=== PATIENT | female | born 1935 | race Caucasian/White ===

== ENCOUNTER 2016-03-15 19:50 | Inpatient (IN) | payer MEDICARE ==
[~2016-03-15] VITALS: Ht 160 cm; Wt 52.0 kg
[~2016-03-15 19:50] MED LIST: VITAMINE
[2016-03-15 20:32] LABS: HEMOGLOBIN 12.6 g/dL (11.7-16.4)
[2016-03-15 20:46] LABS: ASPARTATE AMINO TRANSFERASE 67 U/L (15-37); BLOOD UREA NITROGEN 26 mg/dL (7-18)
[2016-03-15 21:24] LABS: ACETAMINOPHEN < 2 mcg/mL (10-30)
[2016-03-15 21:50] LABS: DAU SCREEN DISCLAIMER
[2016-03-15 22:08] LABS: PATH.CAST-FLAG NOT PRESENT; SPERM-FLAG NOT PRESENT; SRC-FLAG NOT PRESENT; XTAL-FLAG NOT PRESENT; YLC-FLAG NOT PRESENT
[2016-03-16] VITALS (7 sets, daily range): BP systolic 134–173; BP diastolic 64–85
[2016-03-16] MEDS: SODIUM CHLORIDE 0.9% 1,000 ML IV SCH ×2 (03:11→23:30)
[2016-03-16] MEDS: CEFTRIAXONE PMX 1GM/50ML 50 ML IV SCH (03:11)
[2016-03-16] MEDS ORDERED: CEFDINIR 300 MG CAPSULE PO SCH (09:00)
[2016-03-16] MEDS: QUETIAPINE 25MG TABLET PO SCH ×2 (09:44→20:33)
[2016-03-16] MEDS: SERTRALINE 50MG TABLET PO SCH (09:44)
[2016-03-16] MEDS: LISINOPRIL 5 MG TABLET PO SCH ×2 (11:03→11:10)
[2016-03-17 01:15] VITALS: BP 128/72
[2016-03-17] MEDS: CEFTRIAXONE PMX 1GM/50ML 50 ML IV SCH (03:52)
[2016-03-17 06:03] LABS: HEMOGLOBIN 11.7 g/dL (11.7-16.4)
[2016-03-17 06:22] LABS: ASPARTATE AMINO TRANSFERASE 37 U/L (15-37); BLOOD UREA NITROGEN 19 mg/dL (7-18)
[2016-03-17 07:38] VITALS: BP 123/67
[2016-03-17] MEDS: QUETIAPINE 25MG TABLET PO SCH ×2 (09:57→21:30)
[2016-03-17] MEDS: SERTRALINE 50MG TABLET PO SCH (09:58)
[2016-03-17] MEDS: LISINOPRIL 5 MG TABLET PO SCH (09:58)
[2016-03-17 13:00] VITALS: BP 108/54
[2016-03-17] MEDS: SODIUM CHLORIDE 0.9% 1,000 ML IV SCH (17:32)
[2016-03-17 18:25] VITALS: BP_SYST 102; BP_SYST 145; BP_DIAS 65; BP_DIAS 75
[2016-03-18 02:07] VITALS: BP 155/71
[2016-03-18] MEDS: CEFTRIAXONE PMX 1GM/50ML 50 ML IV SCH (03:29)
[2016-03-18 07:32] VITALS: BP 152/72
[2016-03-18] MEDS: QUETIAPINE 25MG TABLET PO SCH ×2 (08:25→21:38)
[2016-03-18] MEDS: LISINOPRIL 5 MG TABLET PO SCH (08:25)
[2016-03-18] MEDS: SERTRALINE 50MG TABLET PO SCH (08:27)
[2016-03-18] MEDS: SODIUM CHLORIDE 0.9% 1,000 ML IV SCH (13:49)
[2016-03-18 14:26] VITALS: BP 115/58
[2016-03-18 18:38] VITALS: BP 141/65
[2016-03-19 00:47] VITALS: BP 155/81
[2016-03-19] MEDS: CEFTRIAXONE PMX 1GM/50ML 50 ML IV SCH (03:46)
[2016-03-19 07:34] VITALS: BP 155/73
[2016-03-19] MEDS: SERTRALINE 50MG TABLET PO SCH (08:03)
[2016-03-19] MEDS: LISINOPRIL 5 MG TABLET PO SCH (08:03)
[2016-03-19] MEDS: QUETIAPINE 25MG TABLET PO SCH ×2 (08:03→21:25)
[2016-03-19] MEDS: SODIUM CHLORIDE 0.9% 1,000 ML IV SCH (08:11)
[2016-03-19 12:48] VITALS: BP 171/79
[2016-03-19 19:00] VITALS: BP 159/78
[2016-03-19] MEDS: HALOPERIDOL 1 MG TABLET PO PRN (21:25)
[2016-03-20 01:46] VITALS: BP 147/61
[2016-03-20] MEDS: CEFTRIAXONE PMX 1GM/50ML 50 ML IV SCH (02:56)
[2016-03-20] MEDS: SODIUM CHLORIDE 0.9% 1,000 ML IV SCH (03:01)
[2016-03-20 07:54] VITALS: BP 138/71
[2016-03-20] MEDS: QUETIAPINE 25MG TABLET PO SCH (08:57)
[2016-03-20] MEDS: SERTRALINE 50MG TABLET PO SCH (08:57)
[2016-03-20] MEDS: LISINOPRIL 5 MG TABLET PO SCH (08:57)
[2016-03-20 13:25] VITALS: BP 120/66
[2016-03-20] MEDS: HALOPERIDOL 1 MG TABLET PO PRN (19:34)
[2016-03-20] MEDS: RISPERIDONE 1 MG TABLET PO SCH (19:35)
[2016-03-20 19:40] VITALS: BP 130/66
[2016-03-21 02:13] VITALS: BP 136/61
[2016-03-21] MEDS: CEFTRIAXONE PMX 1GM/50ML 50 ML IV SCH (04:45)
[2016-03-21] MEDS: SODIUM CHLORIDE 0.9% 1,000 ML IV SCH (04:46)
[2016-03-21] MEDS: ACETAMINOPHEN 325 MG TABLET PO PRN (04:54)
[2016-03-21 08:00] VITALS: BP 123/70
[2016-03-21] MEDS: SERTRALINE 50MG TABLET PO SCH (09:29)
[2016-03-21] MEDS: LISINOPRIL 5 MG TABLET PO SCH (09:29)
[2016-03-21] MEDS ORDERED: FLU VACC QS2016-17 (36MOS+)UP/PF 0.5 ML IM-VACC ONE (12:30)
[2016-03-21 19:50] VITALS: BP 128/62
[2016-03-21] MEDS: RISPERIDONE 1 MG TABLET PO SCH (20:29)
[2016-03-21] MEDS: HALOPERIDOL 1 MG TABLET PO PRN (20:30)
[2016-03-22 01:15] VITALS: BP 102/45
[2016-03-22] MEDS: HALOPERIDOL 1 MG TABLET PO PRN ×2 (05:14→18:47)
[2016-03-22] MEDS: LISINOPRIL 5 MG TABLET PO SCH (07:41)
[2016-03-22] MEDS: SERTRALINE 50MG TABLET PO SCH (07:41)
[2016-03-22 07:48] VITALS: BP 130/72
[2016-03-22 13:30] VITALS: BP 135/75
[2016-03-22] MEDS: ACETAMINOPHEN 325 MG TABLET PO PRN (16:36)
[2016-03-22 18:36] VITALS: BP 152/82
[2016-03-22] MEDS: RISPERIDONE 2 MG TABLET PO SCH (21:10)
[2016-03-22] MEDS: LATANOPROST OPHTH 0.005%, 2.5ML EACHEYE SCH (21:10)
[2016-03-23] MEDS: HALOPERIDOL 1 MG TABLET PO PRN ×2 (02:30→09:53)
[2016-03-23 08:16] VITALS: BP 166/76
[2016-03-23] MEDS: LISINOPRIL 5 MG TABLET PO SCH (09:51)
[2016-03-23 13:24] VITALS: BP 133/69
[2016-03-23 14:00] VITALS: BP 133/69
[2016-03-23 18:34] VITALS: BP 128/69
[2016-03-23] MEDS: LATANOPROST OPHTH 0.005%, 2.5ML EACHEYE SCH (21:00)
[2016-03-23] MEDS: RISPERIDONE 2 MG TABLET PO SCH (21:40)
[2016-03-24 02:08] VITALS: BP 144/77
[2016-03-24 07:18] VITALS: BP 150/79
[2016-03-24] MEDS: LISINOPRIL 5 MG TABLET PO SCH (09:25)
[2016-03-24 14:25] VITALS: BP 113/66
[2016-03-24 21:24] VITALS: BP 159/76
[2016-03-24] MEDS: RISPERIDONE 2 MG TABLET PO SCH (21:53)
[2016-03-24] MEDS: LATANOPROST OPHTH 0.005%, 2.5ML EACHEYE SCH (21:53)
[2016-03-25 01:36] VITALS: BP 146/69
[2016-03-25 07:37] VITALS: BP 119/64
[2016-03-25] MEDS: LISINOPRIL 5 MG TABLET PO SCH (08:41)
[2016-03-25 14:20] VITALS: BP 96/61
[2016-03-25 19:01] VITALS: BP 93/54
[2016-03-25] MEDS: RISPERIDONE 2 MG TABLET PO SCH (20:15)
[2016-03-25] MEDS: LATANOPROST OPHTH 0.005%, 2.5ML EACHEYE SCH (20:16)
[2016-03-25 20:19] VITALS: BP 95/59
[2016-03-26 01:31] VITALS: BP 144/78
[2016-03-26 06:42] VITALS: BP 124/75
[2016-03-26 07:35] VITALS: BP 109/65
[2016-03-26] MEDS: LISINOPRIL 5 MG TABLET PO SCH (07:51)
[2016-03-26 13:05] VITALS: BP 111/73
[2016-03-26 18:50] VITALS: BP 109/62
[2016-03-26] MEDS: LATANOPROST OPHTH 0.005%, 2.5ML EACHEYE SCH (20:53)
[2016-03-26] MEDS: RISPERIDONE 2 MG TABLET PO SCH (20:54)
[2016-03-27] VITALS (10 sets, daily range): BP systolic 85–173; BP diastolic 51–81
[2016-03-27] MEDS: HALOPERIDOL 1 MG TABLET PO PRN (02:48)
[2016-03-27] MEDS: LISINOPRIL 5 MG TABLET PO SCH (08:09)
[2016-03-27 12:59] LABS: BLOOD UREA NITROGEN 25 mg/dL (7-18)
[2016-03-27 13:04] LABS: HEMOGLOBIN 12.5 g/dL (11.7-16.4)
[2016-03-27 13:32] LABS: PATH.CAST-FLAG NOT PRESENT; SPERM-FLAG NOT PRESENT; SRC-FLAG NOT PRESENT; XTAL-FLAG NOT PRESENT; YLC-FLAG NOT PRESENT
[2016-03-27] MEDS: RISPERIDONE 2 MG TABLET PO SCH (21:41)
[2016-03-27] MEDS: LATANOPROST OPHTH 0.005%, 2.5ML EACHEYE SCH (21:42)
[2016-03-28 01:08] LABS: IS PT STATUS REG ER OR PRE ER? NO
[2016-03-28 01:50] VITALS: BP 124/73
[2016-03-28 06:26] LABS: IS PT STATUS REG ER OR PRE ER? NO
[2016-03-28 08:00] VITALS: BP_SYST 121; BP_SYST 128; BP_SYST 147; BP_DIAS 71; BP_DIAS 82
[2016-03-28 12:52] LABS: IS PT STATUS REG ER OR PRE ER? NO
[2016-03-28 14:51] VITALS: BP_SYST 112; BP_SYST 99; BP_DIAS 65; BP_DIAS 66; BP_DIAS 70
[2016-03-28] MEDS: HALOPERIDOL 1 MG TABLET PO PRN (18:06)
[2016-03-28 18:36] VITALS: BP_SYST 108; BP_SYST 123; BP_SYST 136; BP_DIAS 65; BP_DIAS 68; BP_DIAS 74
[2016-03-28] MEDS: LATANOPROST OPHTH 0.005%, 2.5ML EACHEYE SCH (21:54)
[2016-03-28] MEDS: RISPERIDONE 2 MG TABLET PO SCH (21:54)
[2016-03-29] VITALS (8 sets, daily range): BP systolic 93–170; BP diastolic 58–93
[2016-03-29] MEDS: HALOPERIDOL 1 MG TABLET PO PRN (00:56)
[2016-03-29] MEDS ORDERED: SODIUM CHLORIDE 0.9% 1,000 ML IV ONE (09:00)
[2016-03-29] MEDS: LATANOPROST OPHTH 0.005%, 2.5ML EACHEYE SCH ×2 (20:59→21:00)
[2016-03-29] MEDS: RISPERIDONE 2 MG TABLET PO SCH (20:59)
[2016-03-30 01:56] VITALS: BP_SYST 128; BP_SYST 154; BP_SYST 159; BP_DIAS 78; BP_DIAS 80; BP_DIAS 81
[2016-03-30] MEDS: HALOPERIDOL 1 MG TABLET PO PRN (01:56)
[2016-03-30 07:05] VITALS: BP_SYST 100; BP_SYST 101; BP_SYST 99; BP_DIAS 59; BP_DIAS 62; BP_DIAS 66
[2016-03-30] MEDS: FLUDROCORTISONE 0.1 MG TABLET PO SCH (09:18)
[2016-03-30 13:34] VITALS: BP_SYST 120; BP_SYST 133; BP_SYST 154; BP_DIAS 71; BP_DIAS 72
[2016-03-30] MEDS: OLANZAPINE 5 MG TABLET PO PRN (18:01)
[2016-03-30 19:30] VITALS: BP_SYST 137; BP_SYST 147; BP_SYST 165; BP_DIAS 71; BP_DIAS 76; BP_DIAS 78
[2016-03-30] MEDS: OLANZAPINE 5 MG TABLET PO SCH (22:59)
[2016-03-30] MEDS: LATANOPROST OPHTH 0.005%, 2.5ML EACHEYE SCH (22:59)
[2016-03-30] MEDS: ACETAMINOPHEN 325 MG TABLET PO PRN (23:03)
[2016-03-31 06:30] VITALS: BP 154/74
[2016-03-31 08:27] VITALS: BP_SYST 129; BP_SYST 149; BP_SYST 151; BP_DIAS 70; BP_DIAS 76; BP_DIAS 82
[2016-03-31] MEDS: ACETAMINOPHEN 325 MG TABLET PO PRN (11:50)
[2016-03-31] MEDS: FLUDROCORTISONE 0.1 MG TABLET PO SCH (11:50)
[2016-03-31 12:41] VITALS: BP 130/76
[2016-03-31] MEDS: OLANZAPINE 5 MG TABLET PO SCH (19:49)
[2016-03-31] MEDS: LATANOPROST OPHTH 0.005%, 2.5ML EACHEYE SCH (19:49)
[2016-03-31 20:02] VITALS: BP_SYST 123; BP_SYST 156; BP_DIAS 73; BP_DIAS 84
[2016-04-01 02:39] VITALS: BP 151/80
[2016-04-01] MEDS: OLANZAPINE 5 MG TABLET PO PRN (03:04)
[2016-04-01 07:35] VITALS: BP_SYST 129; BP_SYST 137; BP_SYST 158; BP_DIAS 75; BP_DIAS 79; BP_DIAS 83
[2016-04-01] MEDS: FLUDROCORTISONE 0.1 MG TABLET PO SCH (08:53)
[2016-04-01 13:59] VITALS: BP_SYST 101; BP_SYST 102; BP_SYST 117; BP_DIAS 64; BP_DIAS 71; BP_DIAS 78
[2016-04-01 19:13] VITALS: BP_SYST 113; BP_SYST 123; BP_SYST 130; BP_DIAS 71; BP_DIAS 73; BP_DIAS 77
[2016-04-01] MEDS: LATANOPROST OPHTH 0.005%, 2.5ML EACHEYE SCH (21:31)
[2016-04-01] MEDS: OLANZAPINE 5 MG TABLET PO SCH (21:34)
[2016-04-02 01:40] VITALS: BP 119/69
[2016-04-02 01:41] VITALS: BP 120/75
[2016-04-02 01:42] VITALS: BP 117/75
[2016-04-02] MEDS: OLANZAPINE 5 MG TABLET PO PRN (02:58)
[2016-04-02 05:57] LABS: HEMOGLOBIN 13.2 g/dL (11.7-16.4)
[2016-04-02 06:15] LABS: ASPARTATE AMINO TRANSFERASE 23 U/L (15-37); BLOOD UREA NITROGEN 32 mg/dL (7-18)
[2016-04-02 08:27] VITALS: BP 157/72
[2016-04-02] MEDS: FLUDROCORTISONE 0.1 MG TABLET PO SCH (09:08)
[2016-04-02 13:39] VITALS: BP 145/80
[2016-04-02 19:37] VITALS: BP 129/88
[2016-04-02] MEDS: LATANOPROST OPHTH 0.005%, 2.5ML EACHEYE SCH (20:11)
[2016-04-02] MEDS: OLANZAPINE 5 MG TABLET PO SCH (20:12)
[2016-04-03 02:22] VITALS: BP 128/69
[2016-04-03 02:26] VITALS: BP 133/67
[2016-04-03 02:28] VITALS: BP 136/73
[2016-04-03 07:59] VITALS: BP 159/82
[2016-04-03] MEDS: FLUDROCORTISONE 0.1 MG TABLET PO SCH (09:08)
[2016-04-03 14:08] VITALS: BP 151/80
[2016-04-03] MEDS: ENOXAPARIN 40 MG/0.4 ML SQ SCH (16:11)
[2016-04-03 19:06] VITALS: BP 128/67
[2016-04-03] MEDS: LATANOPROST OPHTH 0.005%, 2.5ML EACHEYE SCH (20:43)
[2016-04-03] MEDS: OLANZAPINE 5 MG TABLET PO SCH (20:43)
[2016-04-04 01:42] VITALS: BP 142/79
[2016-04-04] MEDS: ACETAMINOPHEN 325 MG TABLET PO PRN (04:55)
[2016-04-04 06:30] VITALS: BP 144/62
[2016-04-04] MEDS: FLUDROCORTISONE 0.1 MG TABLET PO SCH (08:21)
[2016-04-04 14:11] VITALS: BP 139/70
[2016-04-04] MEDS: ENOXAPARIN 40 MG/0.4 ML SQ SCH ×2 (16:00→17:32)
[2016-04-04] MEDS: OLANZAPINE 5 MG TABLET PO PRN (17:24)
[2016-04-04 19:49] VITALS: BP_SYST 112; BP_SYST 114; BP_SYST 116; BP_DIAS 62; BP_DIAS 74; BP_DIAS 76
[2016-04-04] MEDS: LATANOPROST OPHTH 0.005%, 2.5ML EACHEYE SCH (20:07)
[2016-04-04] MEDS: OLANZAPINE 5 MG TABLET PO SCH (21:06)
[2016-04-05 01:19] VITALS: BP_SYST 115; BP_SYST 123; BP_SYST 135; BP_DIAS 72; BP_DIAS 76; BP_DIAS 83
[2016-04-05 08:17] VITALS: BP_SYST 118; BP_SYST 130; BP_SYST 151; BP_DIAS 75; BP_DIAS 79; BP_DIAS 80
[2016-04-05] MEDS: OLANZAPINE 5 MG TABLET PO SCH (09:07)
[2016-04-05] MEDS: FLUDROCORTISONE 0.1 MG TABLET PO SCH (09:08)
[2016-04-05 13:38] VITALS: BP_SYST 133; BP_SYST 135; BP_SYST 139; BP_DIAS 78; BP_DIAS 82
[2016-04-05] MEDS: ENOXAPARIN 40 MG/0.4 ML SQ SCH (17:00)
[2016-04-05 19:16] VITALS: BP_SYST 124; BP_SYST 129; BP_SYST 144; BP_DIAS 67; BP_DIAS 82; BP_DIAS 88
[2016-04-05] MEDS: ACETAMINOPHEN 325 MG TABLET PO PRN (19:41)
[2016-04-05] MEDS: DIVALPROEX 500 MG TAB.ER.24H PO SCH (20:43)
[2016-04-05] MEDS: LATANOPROST OPHTH 0.005%, 2.5ML EACHEYE SCH (20:43)
[2016-04-06 02:00] VITALS: BP_SYST 139; BP_SYST 140; BP_SYST 142; BP_DIAS 78; BP_DIAS 83; BP_DIAS 84
[2016-04-06 07:14] VITALS: BP 174/85
[2016-04-06 07:36] VITALS: BP_SYST 129; BP_SYST 147; BP_DIAS 100; BP_DIAS 98
[2016-04-06] MEDS: FLUDROCORTISONE 0.1 MG TABLET PO SCH (08:21)
[2016-04-06 13:29] VITALS: BP_SYST 127; BP_SYST 136; BP_SYST 153; BP_DIAS 69; BP_DIAS 79; BP_DIAS 87
[2016-04-06] MEDS: ACETAMINOPHEN 325 MG TABLET PO PRN (17:13)
[2016-04-06] MEDS: ENOXAPARIN 40 MG/0.4 ML SQ SCH (17:14)
[2016-04-06 18:39] VITALS: BP 122/64
[2016-04-06] MEDS ORDERED: ACETAMINOPHEN 325 MG TABLET ONE (19:09)
[2016-04-06] MEDS ORDERED: ACETAMINOPHEN 650 MG/20.3 ML UDC ONE (19:09)
[2016-04-06] MEDS ORDERED: OXYcodone 5 MG/5 ML ORAL.SOL UDC ONE (19:09)
[2016-04-06] MEDS ORDERED: FENTANYL PF 100 MCG/2ML ONE (19:09)
[2016-04-06] MEDS ORDERED: HYDROmorphone 2 MG/ML, 1ML ONE (19:33)
[2016-04-06] MEDS: DIVALPROEX 500 MG TAB.ER.24H PO SCH (21:20)
[2016-04-06] MEDS: LATANOPROST OPHTH 0.005%, 2.5ML EACHEYE SCH (21:20)
[2016-04-06] MEDS: OLANZAPINE 5 MG TABLET PO SCH (21:20)
[2016-04-07] VITALS (8 sets, daily range): BP systolic 120–181; BP diastolic 56–97
[2016-04-07] MEDS: OLANZAPINE 5 MG TABLET PO SCH (12:56)
[2016-04-07] MEDS: FLUDROCORTISONE 0.1 MG TABLET PO SCH (12:56)
[2016-04-07] MEDS: ENOXAPARIN 40 MG/0.4 ML SQ SCH (17:00)
[2016-04-07] MEDS: DIVALPROEX 500 MG TAB.ER.24H PO SCH (19:15)
[2016-04-07] MEDS: ACETAMINOPHEN 325 MG TABLET PO PRN (19:15)
[2016-04-07] MEDS: LATANOPROST OPHTH 0.005%, 2.5ML EACHEYE SCH (19:16)
[2016-04-07] MEDS: OLANZAPINE 5 MG TABLET PO PRN (23:24)
[2016-04-08 01:49] VITALS: BP 131/68
[2016-04-08 07:23] VITALS: BP 138/96
[2016-04-08] MEDS: FLUDROCORTISONE 0.1 MG TABLET PO SCH (08:04)
[2016-04-08] MEDS: OLANZAPINE 5 MG TABLET PO PRN (08:05)
[2016-04-08] MEDS ORDERED: LORazepam 2 MG/ML, 1ML ONE (08:31)
[2016-04-08] MEDS: LORazepam 2 MG/ML, 1ML IVPush PRN ×2 (08:35→22:40)
[2016-04-08 16:35] VITALS: BP 120/51
[2016-04-08] MEDS: ENOXAPARIN 40 MG/0.4 ML SQ SCH (17:00)
[2016-04-08 19:02] VITALS: BP 128/76
[2016-04-08] MEDS: DIVALPROEX 500 MG TAB.ER.24H PO SCH (21:06)
[2016-04-08] MEDS: LATANOPROST OPHTH 0.005%, 2.5ML EACHEYE SCH (21:07)
[2016-04-08] MEDS: OLANZAPINE 5 MG TABLET PO SCH (22:40)
[2016-04-09] VITALS (8 sets, daily range): BP systolic 105–138; BP diastolic 58–83
[2016-04-09] MEDS: FLUDROCORTISONE 0.1 MG TABLET PO SCH (07:46)
[2016-04-09] MEDS: ACETAMINOPHEN 325 MG TABLET PO PRN ×2 (07:46→20:23)
[2016-04-09] MEDS: OLANZAPINE 5 MG TABLET PO PRN (07:48)
[2016-04-09] MEDS: ENOXAPARIN 40 MG/0.4 ML SQ SCH (17:00)
[2016-04-09] MEDS: DIVALPROEX 500 MG TAB.ER.24H PO SCH (20:23)
[2016-04-09] MEDS: OLANZAPINE 5 MG TABLET PO SCH (20:23)
[2016-04-09] MEDS: LATANOPROST OPHTH 0.005%, 2.5ML EACHEYE SCH (20:23)
[2016-04-09] MEDS: OLANZAPINE 2.5 MG TABLET PO PRN (20:23)
[2016-04-10 04:19] VITALS: BP 130/71
[2016-04-10 06:54] VITALS: BP_SYST 139; BP_SYST 141; BP_SYST 144; BP_DIAS 76; BP_DIAS 92
[2016-04-10] MEDS: FLUDROCORTISONE 0.1 MG TABLET PO SCH (09:25)
[2016-04-10] MEDS: OLANZAPINE 2.5 MG TABLET PO PRN (13:20)
[2016-04-10] MEDS: OLANZAPINE 5 MG TABLET PO SCH ×2 (13:20→21:18)
[2016-04-10 13:59] VITALS: BP 137/82
[2016-04-10] MEDS: ENOXAPARIN 40 MG/0.4 ML SQ SCH (17:00)
[2016-04-10 19:43] VITALS: BP 159/81
[2016-04-10] MEDS: DIVALPROEX 250 MG TAB.ER.24H PO SCH (21:17)
[2016-04-10] MEDS: LATANOPROST OPHTH 0.005%, 2.5ML EACHEYE SCH (21:18)
[2016-04-10] MEDS: ACETAMINOPHEN 325 MG TABLET PO PRN (22:51)
[2016-04-11 01:36] VITALS: BP 154/79
[2016-04-11 08:20] VITALS: BP 132/78
[2016-04-11] MEDS: FLUDROCORTISONE 0.1 MG TABLET PO SCH (08:24)
[2016-04-11] MEDS: ACETAMINOPHEN 325 MG TABLET PO PRN ×2 (08:24→16:47)
[2016-04-11] MEDS: OLANZAPINE 2.5 MG TABLET PO PRN (12:37)
[2016-04-11 13:50] VITALS: BP 130/84
[2016-04-11] MEDS: ENOXAPARIN 40 MG/0.4 ML SQ SCH (16:12)
[2016-04-11 19:51] VITALS: BP 134/80
[2016-04-11] MEDS: OLANZAPINE 5 MG TABLET PO SCH (22:31)
[2016-04-11] MEDS: LATANOPROST OPHTH 0.005%, 2.5ML EACHEYE SCH (22:31)
[2016-04-11] MEDS: DIVALPROEX 250 MG TAB.ER.24H PO SCH (22:31)
[2016-04-12] MEDS: OLANZAPINE 2.5 MG TABLET PO PRN ×2 (05:28→16:06)
[2016-04-12 07:48] VITALS: BP 123/76
[2016-04-12] MEDS: FLUDROCORTISONE 0.1 MG TABLET PO SCH (08:29)
[2016-04-12] MEDS: ENOXAPARIN 40 MG/0.4 ML SQ SCH (17:00)
[2016-04-12 19:29] VITALS: BP 114/68
[2016-04-12] MEDS: LATANOPROST OPHTH 0.005%, 2.5ML EACHEYE SCH (19:59)
[2016-04-12] MEDS: DIVALPROEX 250 MG TAB.ER.24H PO SCH (20:00)
[2016-04-12] MEDS: OLANZAPINE 5 MG TABLET PO SCH (20:00)
[2016-04-13] MEDS: OLANZAPINE 2.5 MG TABLET PO PRN (01:27)
[2016-04-13] MEDS ORDERED: LORazepam 1MG TABLET PO ONE (06:00)
[2016-04-13 07:51] VITALS: BP 110/66
[2016-04-13 08:42] VITALS: BP 123/80
[2016-04-13] MEDS: FLUDROCORTISONE 0.1 MG TABLET PO SCH (09:00)
[2016-04-13] MEDS ORDERED: SODIUM CHLORIDE 0.9%, 500ML IVBOLUS ONE (09:00)
[2016-04-13] MEDS ORDERED: FLUMAZENIL 0.1 MG/1 ML, 5ML IVPush ONE (09:00)
[2016-04-13 10:06] LABS: HEMOGLOBIN 12.7 g/dL (11.7-16.4)
[2016-04-13 11:40] LABS: ASPARTATE AMINO TRANSFERASE 22 U/L (15-37); BLOOD UREA NITROGEN 26 mg/dL (7-18)
[2016-04-13 11:41] LABS: IS PT STATUS REG ER OR PRE ER? NO
[2016-04-13 12:55] VITALS: BP 129/78
[2016-04-13] MEDS: ACETAMINOPHEN 325 MG TABLET PO PRN (16:10)
[2016-04-13 19:00] LABS: IS PT STATUS REG ER OR PRE ER? NO
[2016-04-13 20:00] VITALS: BP 118/63
[2016-04-13] MEDS: OLANZAPINE 5 MG TABLET PO SCH (21:00)
[2016-04-13] MEDS: DIVALPROEX 250 MG TAB.ER.24H PO SCH (21:00)
[2016-04-13] MEDS: LATANOPROST OPHTH 0.005%, 2.5ML EACHEYE SCH (21:00)
[2016-04-13] MEDS: ENOXAPARIN 40 MG/0.4 ML SQ SCH (21:00)
[2016-04-14 02:00] VITALS: BP 128/73
[2016-04-14] MEDS: OLANZAPINE 2.5 MG TABLET PO PRN ×2 (05:12→14:10)
[2016-04-14 05:20] LABS: HEMOGLOBIN 13.1 g/dL (11.7-16.4)
[2016-04-14 05:28] LABS: BLOOD UREA NITROGEN 34 mg/dL (7-18)
[2016-04-14 06:33] VITALS: BP 113/66
[2016-04-14] MEDS: FLUDROCORTISONE 0.1 MG TABLET PO SCH (09:10)
[2016-04-14 14:49] VITALS: BP 133/71
[2016-04-14] MEDS ORDERED: DIVALPROEX 250 MG TAB.ER.24H PO STA (15:09)
[2016-04-14 18:57] VITALS: BP 150/73
[2016-04-14] MEDS: ENOXAPARIN 40 MG/0.4 ML SQ SCH (20:12)
[2016-04-14] MEDS: DIVALPROEX 250 MG TAB.ER.24H PO SCH (20:17)
[2016-04-14] MEDS: OLANZAPINE 5 MG TABLET PO SCH (20:17)
[2016-04-14] MEDS: LATANOPROST OPHTH 0.005%, 2.5ML EACHEYE SCH (20:18)
[2016-04-15 01:24] VITALS: BP 143/79
[2016-04-15] MEDS: FLUDROCORTISONE 0.1 MG TABLET PO SCH (07:30)
[2016-04-15] MEDS: OLANZAPINE 2.5 MG TABLET PO PRN ×2 (07:30→13:11)
[2016-04-15 07:57] VITALS: BP 145/79
[2016-04-15 15:12] VITALS: BP 129/68
[2016-04-15 18:44] VITALS: BP 153/84
[2016-04-15] MEDS: OLANZAPINE 5 MG TABLET PO SCH (20:41)
[2016-04-15] MEDS: DIVALPROEX 250 MG TAB.ER.24H PO SCH (20:41)
[2016-04-15] MEDS: LATANOPROST OPHTH 0.005%, 2.5ML EACHEYE SCH (20:41)
[2016-04-15] MEDS: ENOXAPARIN 40 MG/0.4 ML SQ SCH (20:44)
[2016-04-16 04:06] VITALS: BP 160/81
[2016-04-16] MEDS: OLANZAPINE 2.5 MG TABLET PO PRN ×4 (05:52→17:48)
[2016-04-16 07:45] VITALS: BP 144/84
[2016-04-16] MEDS: FLUDROCORTISONE 0.1 MG TABLET PO SCH (09:44)
[2016-04-16 13:44] VITALS: BP 166/77
[2016-04-16 18:06] VITALS: BP 147/117
[2016-04-16] MEDS: DIVALPROEX 250 MG TAB.ER.24H PO SCH (20:52)
[2016-04-16] MEDS: OLANZAPINE 5 MG TABLET PO SCH (20:54)
[2016-04-16] MEDS: LATANOPROST OPHTH 0.005%, 2.5ML EACHEYE SCH (20:54)
[2016-04-16] MEDS: ENOXAPARIN 40 MG/0.4 ML SQ SCH (20:55)
[2016-04-17] MEDS ORDERED: RISPERIDONE 0.5 MG TABLET PO ONE (03:30)
[2016-04-17 07:40] VITALS: BP 153/88
[2016-04-17] MEDS: ACETAMINOPHEN 325 MG TABLET PO PRN (08:05)
[2016-04-17] MEDS: FLUDROCORTISONE 0.1 MG TABLET PO SCH (09:48)
[2016-04-17] MEDS: OLANZAPINE 2.5 MG TABLET PO PRN ×2 (17:37→20:35)
[2016-04-17 20:10] VITALS: BP 166/81
[2016-04-17] MEDS: ENOXAPARIN 40 MG/0.4 ML SQ SCH (20:19)
[2016-04-17] MEDS: LATANOPROST OPHTH 0.005%, 2.5ML EACHEYE SCH (20:36)
[2016-04-17] MEDS: DIVALPROEX 250 MG TAB.ER.24H PO SCH (20:36)
[2016-04-17] MEDS: OLANZAPINE 5 MG TABLET PO SCH (21:03)
[2016-04-18 08:00] VITALS: BP 120/82
[2016-04-18] MEDS: FLUDROCORTISONE 0.1 MG TABLET PO SCH (08:57)
[2016-04-18 19:33] VITALS: BP 139/75
[2016-04-18] MEDS: LATANOPROST OPHTH 0.005%, 2.5ML EACHEYE SCH (20:04)
[2016-04-18] MEDS: DIVALPROEX 250 MG TAB.ER.24H PO SCH (20:05)
[2016-04-18] MEDS: OLANZAPINE 5 MG TABLET PO SCH (20:06)
[2016-04-18] MEDS: ENOXAPARIN 40 MG/0.4 ML SQ SCH (21:00)
[2016-04-19 03:07] VITALS: BP 151/88
[2016-04-19] MEDS: ACETAMINOPHEN 325 MG TABLET PO PRN (09:05)
[2016-04-19 09:15] VITALS: BP 142/87
[2016-04-19 15:00] VITALS: BP 147/81
[2016-04-19 19:54] VITALS: BP 153/80
[2016-04-19] MEDS: OLANZAPINE 5 MG TABLET PO SCH (20:50)
[2016-04-19] MEDS: LATANOPROST OPHTH 0.005%, 2.5ML EACHEYE SCH (20:51)
[2016-04-19] MEDS: DIVALPROEX 250 MG TAB.ER.24H PO SCH (20:55)
[2016-04-19] MEDS: ENOXAPARIN 40 MG/0.4 ML SQ SCH (20:56)
[2016-04-20] VITALS (11 sets, daily range): BP systolic 118–169; BP diastolic 65–92
[2016-04-20] MEDS: ACETAMINOPHEN 325 MG TABLET PO PRN (03:52)
[2016-04-20] MEDS: OLANZAPINE 2.5 MG TABLET PO PRN ×2 (03:52→23:10)
[2016-04-20] MEDS: OLANZAPINE 5 MG TABLET PO SCH (20:27)
[2016-04-20] MEDS: LATANOPROST OPHTH 0.005%, 2.5ML EACHEYE SCH (20:27)
[2016-04-20] MEDS: DIVALPROEX 250 MG TAB.ER.24H PO SCH (20:30)
[2016-04-20] MEDS: ENOXAPARIN 40 MG/0.4 ML SQ SCH (21:00)
[2016-04-21 05:49] VITALS: BP 153/90
[2016-04-21] MEDS: OLANZAPINE 2.5 MG TABLET PO PRN ×3 (08:00→15:43)
[2016-04-21 11:28] VITALS: BP 115/81
[2016-04-21 13:00] VITALS: BP 125/80
[2016-04-21 19:17] VITALS: BP 119/68
[2016-04-21] MEDS: DIVALPROEX 250 MG TAB.ER.24H PO SCH (20:17)
[2016-04-21] MEDS: LATANOPROST OPHTH 0.005%, 2.5ML EACHEYE SCH (20:17)
[2016-04-21] MEDS: OLANZAPINE 5 MG TABLET PO SCH (20:18)
[2016-04-21] MEDS: ENOXAPARIN 40 MG/0.4 ML SQ SCH (21:00)
[2016-04-22 07:52] VITALS: BP 144/83
[2016-04-22] MEDS ORDERED: OLANZAPINE 5 MG TABLET PO ONE (14:00)
[2016-04-22 19:43] VITALS: BP 159/80
[2016-04-22] MEDS: DIVALPROEX 250 MG TAB.ER.24H PO SCH (21:00)
[2016-04-22] MEDS: ENOXAPARIN 40 MG/0.4 ML SQ SCH (21:00)
[2016-04-22] MEDS: LATANOPROST OPHTH 0.005%, 2.5ML EACHEYE SCH (21:25)
[2016-04-22] MEDS: OLANZAPINE 5 MG TABLET PO SCH (21:26)
[2016-04-23 07:25] VITALS: BP 130/86
[2016-04-23] MEDS: OLANZAPINE 5 MG TABLET PO SCH ×2 (08:18→20:40)
[2016-04-23 20:36] VITALS: BP 125/80
[2016-04-23] MEDS: LATANOPROST OPHTH 0.005%, 2.5ML EACHEYE SCH (20:39)
[2016-04-23] MEDS: ENOXAPARIN 40 MG/0.4 ML SQ SCH (20:41)
[2016-04-23] MEDS: DIVALPROEX 250 MG TAB.ER.24H PO SCH (20:41)
[2016-04-24] MEDS: OLANZAPINE 2.5 MG TABLET PO PRN (02:46)
[2016-04-24 08:00] VITALS: BP 133/60
[2016-04-24] MEDS: OLANZAPINE 5 MG TABLET PO SCH ×2 (11:10→20:58)
[2016-04-24 19:35] VITALS: BP 125/81
[2016-04-24] MEDS: DIVALPROEX 250 MG TAB.ER.24H PO SCH (20:58)
[2016-04-24] MEDS: LATANOPROST OPHTH 0.005%, 2.5ML EACHEYE SCH (20:58)
[2016-04-24] MEDS: ENOXAPARIN 40 MG/0.4 ML SQ SCH (21:00)
[2016-04-25 07:48] VITALS: BP 125/71
[2016-04-25] MEDS: OLANZAPINE 5 MG TABLET PO SCH ×2 (10:06→21:24)
[2016-04-25 19:36] VITALS: BP 119/73
[2016-04-25] MEDS: ENOXAPARIN 40 MG/0.4 ML SQ SCH (21:00)
[2016-04-25] MEDS: LATANOPROST OPHTH 0.005%, 2.5ML EACHEYE SCH (21:24)
[2016-04-25] MEDS: DIVALPROEX 250 MG TAB.ER.24H PO SCH (21:24)
[2016-04-25 21:37] VITALS: BP 149/79
[2016-04-26 08:19] VITALS: BP 115/70
[2016-04-26] MEDS: OLANZAPINE 5 MG TABLET PO SCH ×2 (08:41→20:55)
[2016-04-26 18:15] LABS: HEMOGLOBIN 13.7 g/dL (11.7-16.4)
[2016-04-26 18:26] LABS: BLOOD UREA NITROGEN 38 mg/dL (7-18)
[2016-04-26 19:25] VITALS: BP 136/71
[2016-04-26] MEDS: DIVALPROEX 250 MG TAB.ER.24H PO SCH (20:55)
[2016-04-26] MEDS: ENOXAPARIN 40 MG/0.4 ML SQ SCH (21:00)
[2016-04-26] MEDS: LATANOPROST OPHTH 0.005%, 2.5ML EACHEYE SCH (21:02)
[2016-04-27 07:47] VITALS: BP 119/75
[2016-04-27] MEDS: OLANZAPINE 5 MG TABLET PO SCH ×2 (08:38→22:06)
[2016-04-27 19:33] VITALS: BP 106/65
[2016-04-27] MEDS: DIVALPROEX 250 MG TAB.ER.24H PO SCH (22:07)
[2016-04-27] MEDS: LATANOPROST OPHTH 0.005%, 2.5ML EACHEYE SCH (22:09)
[2016-04-27] MEDS: ENOXAPARIN 40 MG/0.4 ML SQ SCH (22:12)
[2016-04-28] MEDS: OLANZAPINE 2.5 MG TABLET PO PRN (02:54)
[2016-04-28 07:54] VITALS: BP 139/77
[2016-04-28] MEDS: OLANZAPINE 5 MG TABLET PO SCH ×2 (08:12→23:11)
[2016-04-28 19:43] VITALS: BP 119/75
[2016-04-28] MEDS: ENOXAPARIN 40 MG/0.4 ML SQ SCH (21:00)
[2016-04-28] MEDS: DIVALPROEX 250 MG TAB.ER.24H PO SCH (23:11)
[2016-04-28] MEDS: LATANOPROST OPHTH 0.005%, 2.5ML EACHEYE SCH (23:14)
[2016-04-28] MEDS: DRONABINOL 2.5 MG CAPSULE PO SCH (23:17)
[2016-04-29 05:15] VITALS: BP 133/69
[2016-04-29 06:06] LABS: HEMOGLOBIN 13.8 g/dL (11.7-16.4)
[2016-04-29 06:46] LABS: ASPARTATE AMINO TRANSFERASE 34 U/L (15-37); BLOOD UREA NITROGEN 20 mg/dL (7-18)
[2016-04-29 07:57] VITALS: BP 126/63
[2016-04-29] MEDS: DRONABINOL 2.5 MG CAPSULE PO SCH ×3 (10:30→21:45)
[2016-04-29] MEDS: OLANZAPINE 5 MG TABLET PO SCH ×2 (10:31→21:00)
[2016-04-29 19:58] VITALS: BP 113/65
[2016-04-29] MEDS: ENOXAPARIN 40 MG/0.4 ML SQ SCH (21:00)
[2016-04-29] MEDS: DIVALPROEX 250 MG TAB.ER.24H PO SCH (21:38)
[2016-04-29] MEDS: LATANOPROST OPHTH 0.005%, 2.5ML EACHEYE SCH (21:38)
[2016-04-30] MEDS: OLANZAPINE 2.5 MG TABLET PO PRN (06:23)
[2016-04-30 07:40] VITALS: BP 121/72
[2016-04-30] MEDS: DRONABINOL 2.5 MG CAPSULE PO SCH ×2 (08:35→21:33)
[2016-04-30] MEDS: OLANZAPINE 5 MG TABLET PO SCH ×2 (08:35→21:35)
[2016-04-30 17:09] VITALS: BP 123/70
[2016-04-30] MEDS: ENOXAPARIN 40 MG/0.4 ML SQ SCH (21:00)
[2016-04-30] MEDS: DIVALPROEX 250 MG TAB.ER.24H PO SCH (21:14)
[2016-04-30] MEDS: LATANOPROST OPHTH 0.005%, 2.5ML EACHEYE SCH (21:17)
[2016-05-01] MEDS: OLANZAPINE 2.5 MG TABLET PO PRN (01:04)
[2016-05-01 07:45] VITALS: BP 109/68
[2016-05-01] MEDS: DRONABINOL 2.5 MG CAPSULE PO SCH ×2 (08:00→21:05)
[2016-05-01] MEDS: OLANZAPINE 5 MG TABLET PO SCH ×2 (08:00→21:06)
[2016-05-01 19:23] VITALS: BP 107/64
[2016-05-01] MEDS: ENOXAPARIN 40 MG/0.4 ML SQ SCH (21:00)
[2016-05-01] MEDS: DIVALPROEX 250 MG TAB.ER.24H PO SCH (21:06)
[2016-05-01] MEDS: LATANOPROST OPHTH 0.005%, 2.5ML EACHEYE SCH (21:07)
[2016-05-02 07:59] VITALS: BP 111/71
[2016-05-02] MEDS: DRONABINOL 2.5 MG CAPSULE PO SCH ×2 (08:20→21:13)
[2016-05-02] MEDS: OLANZAPINE 5 MG TABLET PO SCH ×2 (08:20→21:14)
[2016-05-02 19:10] VITALS: BP 111/71
[2016-05-02] MEDS: LATANOPROST OPHTH 0.005%, 2.5ML EACHEYE SCH (21:12)
[2016-05-02] MEDS: DIVALPROEX 250 MG TAB.ER.24H PO SCH (21:13)
[2016-05-02] MEDS: ENOXAPARIN 40 MG/0.4 ML SQ SCH (21:14)
[2016-05-03 07:53] VITALS: BP 136/80
[2016-05-03] MEDS: OLANZAPINE 5 MG TABLET PO SCH ×2 (08:16→20:49)
[2016-05-03] MEDS: DRONABINOL 2.5 MG CAPSULE PO SCH ×2 (08:16→20:49)
[2016-05-03 15:49] LABS: BLOOD UREA NITROGEN 28 mg/dL (7-18)
[2016-05-03 19:55] VITALS: BP 112/75
[2016-05-03] MEDS: DIVALPROEX 250 MG TAB.ER.24H PO SCH (20:48)
[2016-05-03] MEDS: LATANOPROST OPHTH 0.005%, 2.5ML EACHEYE SCH (20:48)
[2016-05-03] MEDS: ENOXAPARIN 40 MG/0.4 ML SQ SCH (20:49)
[2016-05-04 07:18] VITALS: BP 143/83
[2016-05-04] MEDS: OLANZAPINE 5 MG TABLET PO SCH ×2 (08:35→21:44)
[2016-05-04] MEDS: DRONABINOL 2.5 MG CAPSULE PO SCH ×2 (08:35→21:43)
[2016-05-04 19:19] VITALS: BP 115/63
[2016-05-04] MEDS: ENOXAPARIN 40 MG/0.4 ML SQ SCH (21:00)
[2016-05-04] MEDS: DIVALPROEX 250 MG TAB.ER.24H PO SCH (21:43)
[2016-05-04] MEDS: LATANOPROST OPHTH 0.005%, 2.5ML EACHEYE SCH (21:50)
[2016-05-05 08:12] VITALS: BP 126/78
[2016-05-05] MEDS: DRONABINOL 2.5 MG CAPSULE PO SCH ×2 (08:17→21:14)
[2016-05-05] MEDS: OLANZAPINE 2.5 MG TABLET PO PRN (08:23)
[2016-05-05] MEDS: OLANZAPINE 5 MG TABLET PO SCH ×2 (09:00→21:14)
[2016-05-05] MEDS: ENOXAPARIN 40 MG/0.4 ML SQ SCH (21:00)
[2016-05-05 21:04] VITALS: BP 133/80
[2016-05-05] MEDS: LATANOPROST OPHTH 0.005%, 2.5ML EACHEYE SCH (21:13)
[2016-05-05] MEDS: DIVALPROEX 250 MG TAB.ER.24H PO SCH (21:15)
[2016-05-06 08:21] VITALS: BP 114/73
[2016-05-06] MEDS: OLANZAPINE 5 MG TABLET PO SCH ×2 (08:43→20:24)
[2016-05-06] MEDS: DRONABINOL 2.5 MG CAPSULE PO SCH ×2 (08:43→20:24)
[2016-05-06] MEDS ORDERED: SODIUM CHLORIDE 0.9% 500 ML IV ONE (19:00)
[2016-05-06 19:40] VITALS: BP 117/73
[2016-05-06] MEDS: LATANOPROST OPHTH 0.005%, 2.5ML EACHEYE SCH (20:22)
[2016-05-06] MEDS: DIVALPROEX 250 MG TAB.ER.24H PO SCH (20:23)
[2016-05-06] MEDS: ENOXAPARIN 40 MG/0.4 ML SQ SCH (20:31)
[2016-05-07 08:00] VITALS: BP 116/73
[2016-05-07] MEDS: OLANZAPINE 5 MG TABLET PO SCH ×2 (08:34→21:11)
[2016-05-07] MEDS: DRONABINOL 2.5 MG CAPSULE PO SCH ×2 (08:34→21:11)
[2016-05-07 19:38] VITALS: BP 107/59
[2016-05-07] MEDS: ENOXAPARIN 40 MG/0.4 ML SQ SCH (21:00)
[2016-05-07] MEDS: LATANOPROST OPHTH 0.005%, 2.5ML EACHEYE SCH (21:10)
[2016-05-07] MEDS: DIVALPROEX 250 MG TAB.ER.24H PO SCH (21:11)
[2016-05-07 23:48] VITALS: BP 137/77
[2016-05-07] MEDS: OLANZAPINE 2.5 MG TABLET PO PRN (23:50)
[2016-05-08 08:01] VITALS: BP 131/68
[2016-05-08] MEDS: OLANZAPINE 5 MG TABLET PO SCH ×2 (08:01→21:53)
[2016-05-08] MEDS: DRONABINOL 2.5 MG CAPSULE PO SCH ×2 (08:01→21:00)
[2016-05-08 19:28] VITALS: BP 145/78
[2016-05-08] MEDS: ENOXAPARIN 40 MG/0.4 ML SQ SCH (19:30)
[2016-05-08] MEDS: DOCUSATE 100 MG CAPSULE PO SCH (21:00)
[2016-05-08] MEDS: LATANOPROST OPHTH 0.005%, 2.5ML EACHEYE SCH (21:53)
[2016-05-08] MEDS: DIVALPROEX 250 MG TAB.ER.24H PO SCH (21:53)
[2016-05-09 07:46] VITALS: BP 114/79
[2016-05-09] MEDS: DRONABINOL 2.5 MG CAPSULE PO SCH ×2 (09:00→23:11)
[2016-05-09] MEDS: OLANZAPINE 5 MG TABLET PO SCH ×2 (09:39→23:11)
[2016-05-09] MEDS: DOCUSATE 100 MG CAPSULE PO SCH ×2 (09:39→23:11)
[2016-05-09] MEDS: LACTATED RINGERS 1,000 ML IV SCH (13:30)
[2016-05-09 13:57] LABS: ASPARTATE AMINO TRANSFERASE 34 U/L (15-37); BLOOD UREA NITROGEN 20 mg/dL (7-18)
[2016-05-09 14:08] LABS: IS PT STATUS REG ER OR PRE ER? NO
[2016-05-09 14:35] VITALS: BP 98/61
[2016-05-09 19:10] LABS: IS PT STATUS REG ER OR PRE ER? NO
[2016-05-09 19:52] VITALS: BP 113/72
[2016-05-09] MEDS: ENOXAPARIN 40 MG/0.4 ML SQ SCH (21:00)
[2016-05-09] MEDS: DIVALPROEX 250 MG TAB.ER.24H PO SCH (23:12)
[2016-05-09] MEDS: LATANOPROST OPHTH 0.005%, 2.5ML EACHEYE SCH (23:13)
[2016-05-10 03:45] VITALS: BP 133/74
[2016-05-10] MEDS: LACTATED RINGERS 1,000 ML IV SCH (04:12)
[2016-05-10 06:57] LABS: IS PT STATUS REG ER OR PRE ER? NO
[2016-05-10 07:28] VITALS: BP 130/67
[2016-05-10] MEDS: OLANZAPINE 5 MG TABLET PO SCH ×2 (09:40→21:48)
[2016-05-10] MEDS: DRONABINOL 2.5 MG CAPSULE PO SCH ×2 (09:40→21:50)
[2016-05-10] MEDS: DOCUSATE 100 MG CAPSULE PO SCH ×2 (09:40→21:50)
[2016-05-10 13:10] VITALS: BP 130/79
[2016-05-10] MEDS: OLANZAPINE 2.5 MG TABLET PO PRN (18:05)
[2016-05-10 20:04] VITALS: BP 131/75
[2016-05-10] MEDS: ENOXAPARIN 40 MG/0.4 ML SQ SCH (21:00)
[2016-05-10] MEDS: DIVALPROEX 250 MG TAB.ER.24H PO SCH (21:48)
[2016-05-10] MEDS: LATANOPROST OPHTH 0.005%, 2.5ML EACHEYE SCH (21:50)
[2016-05-11 01:06] VITALS: BP 143/68
[2016-05-11 07:18] VITALS: BP 137/73
[2016-05-11] MEDS: OLANZAPINE 5 MG TABLET PO SCH (10:01)
[2016-05-11] MEDS: DOCUSATE 100 MG CAPSULE PO SCH (10:01)
[2016-05-11] MEDS: DRONABINOL 2.5 MG CAPSULE PO SCH (10:01)
[2016-05-11 13:46] VITALS: BP 148/83
== END 2016-05-11 17:04 | disposition left against medical advice (07) | DRG 70 ==
LOC: ED 21:21 → EDIP 23:18 → 4NOR 03-16 01:15 → 3E 03-22 18:20 → 4WST 03-23 13:40 → 3NE 04-01 22:44 → 3E 04-11 17:15 → 4EST 04-13 08:32 → 4WST 04-13 17:54 → 3E 04-16 17:56 → 4EST 05-09 14:00
PROVIDERS: ADMIT Internal Medicine
PROC: 0T9B70Z Drainage of Bladder with Drainage Device, Via Natural or Artificial Opening (ICD-10-PCS; principal; 2016-03-15)
DX: G93.41 Metabolic encephalopathy (principal); E43 Unspecified severe protein-calorie malnutrition; E27.40 Unspecified adrenocortical insufficiency; N39.0 Urinary tract infection, site not specified; F03.91 Unspecified dementia, unspecified severity, with behavioral disturbance; R45.851 Suicidal ideations; F30.2 Manic episode, severe with psychotic symptoms; F24 Shared psychotic disorder; F91.9 Conduct disorder, unspecified; R73.9 Hyperglycemia, unspecified; F39 Unspecified mood [affective] disorder; F40.240 Claustrophobia; G47.00 Insomnia, unspecified; I35.8 Other nonrheumatic aortic valve disorders; I10 Essential (primary) hypertension; I95.1 Orthostatic hypotension; R62.7 Adult failure to thrive; S51.019A Laceration without foreign body of unspecified elbow, initial encounter; Z78.1 Physical restraint status; Z79.899 Other long term (current) drug therapy; Z82.0 Family history of epilepsy and other diseases of the nervous system; Z90.710 Acquired absence of both cervix and uterus; Z68.20 Body mass index [BMI] 20.0-20.9, adult
CPT/HCPCS: 36415; 70450; 80048; 80053; 80164; 80307; 80329; 81001; 81003; 82140; 82533; 82607; 82746; 82962; 83036; 83735; 84100; 84443; 84484; 85025; 87086; 93005; 93306; J0696; J1650; Q0167; 92522-GN; 92523-GN; G0480; J2060; J7030; J7040; J7120